=== PATIENT | female | born 1995 | race Caucasian/White ===

== ENCOUNTER 2020-09-30 15:38 | Emergency (ER) | payer SELFPAY ==
[2020-09-30] MEDS ORDERED: LORazepam 1 MG Tab PO ONE (16:26)
--- NOTE | 2020-09-30 16:42 | EDM.PDOCBH ---
ED HPI GENERAL MEDICAL PROBLEM - General Chief Complaint: Behavioral/Psych Stated Complaint: MEDICATION REQUEST Time Seen by Provider: 09/30/20 16:01 Source of Information: Reports: Patient, RN Notes Reviewed History Limitations: Reports: No Limitations - History of Present Illness INITIAL COMMENTS - FREE TEXT/NARRATIVE: Patient is a 24-year-old female presenting to the emergency department after being brought here by a sales solutions representative [facility]. They report that she was quite anxious at their facility and that they feel she needs something for anxiety to get her through the weekend. After visiting with the patient, she admits that she is feeling very anxious. She talks about her sister who shot herself in the head a number of years ago and that she is w earing a necklace with her ashes around her neck. She also talks about "the spirit moving through her "[place]. She is currently living in an apartment with a friend. States that she is traveling from [place]. She has been on medications in the past, however she cannot remember the name. She states it was a antidepressant medication that also works for schizophrenia, however she has never been diagnosed with schizophrenia. States that she has been diagnosed with anxiety and depression. She is not currently taking any medications. She denies feeling suicidal or homicidal. Right Neck Pain Score (Numeric/FACES): 7 Right Head Pain Score (Numeric/FACES): 10 Right Knee Pain Score (Numeric/FACES): 10 - Related Data Allergies Allergy/AdvReac Type Severity Reaction Status Date / Time No Known Allergies Allergy Verified 09/30/20 15:53 Home Meds: Home Meds . [No Known Home Meds] 09/30/20 [History] Past Medical History Psychiatric History: Reports: Anxiety, Depression, Suicide Attempt Other Psychiatric History: tried to kill self about 2 yrs ago Social & Family History - Tobacco Use Tobacco Use Status *Q: Never Tobacco User - Caffeine Use Other Caffeine Use: doesn't answer questions - Recreational Drug Use Recreational Drug Type: Reports: Heroin ED ROS GENERAL - Review of Systems Review Of Systems: See Below Constitutional: Reports: No Symptoms HEENT: Reports: No Symptoms Respiratory: Reports: No Symptoms Cardiovascular: Reports: No Symptoms Endocrine: Reports: No Symptoms GI/Abdominal: Reports: No Symptoms : Reports: No Symptoms Musculoskeletal: Reports: No Symptoms Skin: Reports: No Symptoms Neurological: Reports: No Symptoms Psychiatric: Reports: Anxiety, Depression. Denies: Hallucinations, Homicidal Ideation, Suicidal Ideation Hematologic/Lymphatic: Reports: No Symptoms Immunologic: Reports: No Symptoms ED EXAM, BEHAVIORAL HEALTH - Physical Exam Exam: See Below General Appearance: Alert, No Apparent Distress, Anxious Eye Exam: Bilateral Eye: PERRL Respiratory/Chest: No Respiratory Distress, Lungs Clear, Normal Breath Sounds, No Accessory Muscle Use, Chest Non-Tender Cardiovascular: Normal Peripheral Pulses, Regular Rate, Rhythm, No Edema, No Gallop, No JVD, No Murmur, No Rub GI/Abdominal: Normal Bowel Sounds, Soft, Non-Tender, No Organomegaly, No Distention, No Abnormal Bruit, No Mass Neurological: Alert, Normal Mood/Affect, CN II-XII Intact, Normal Cognition, Normal Gait, Normal Reflexes, No Motor/Sensory Deficits, Oriented x 3 Psychiatric: Alert, Oriented, Flight of Ideas, Tangential Thoughts. No: Joe icidal Thoughts, Suicidal Plan, Suicidal Thoughts, Auditory Hallucinations, Visual Hallucinations, Pressured Speech, Paranoid Thoughts, Threatening Behavior Skin Exam: Warm, Dry, Intact, Normal color, No rash COURSE, BEHAVIORAL HEALTH COMP - Course Vital Signs: Last Vital Signs Temp 97.4 F 09/30/20 15:59 Pulse 73 09/30/20 15:59 Resp 20 09/30/20 15:59 BP 102/67 09/30/20 15:59 Pulse Ox 98 09/30/20 15:59 Orders, Labs, Meds: Medications Discontinued Medications Generic Name Dose Route Start Last Admin Trade Name Freq PRN Reason Stop Dose Admin Lorazepam 1 mg 09/30/20 16:26 Lorazepam 1 Mg Tab PO 09/30/20 16:27 ONETIME ONE Discharge vs Psych Eval/Treatment:: Patient is a 24-year-old female presenting to the emergency department after being brought here by [facility]. They feel that she needs something for anxiety to get her through the weekend. She does not want to go to the residential crisis center. She has an apartment in here in town with a friend. After visiting with the patient, she does appear to have flight of ideas and tangential thinking. She talks about her sister who shot herself in the head when she was in eighth grade as well as having her ashes around her neck. She makes reference to having an extra bone in her right shoulder. Denies any suicidal or homicidal thoughts. She is not currently on any medications per her report. I have ordered Ativan 1 mg p.o. to be given now. I will visit with her further once she is feeling more calm 09/30/20 16:40 Nursing staff reports that patient left the facility. She called her boyfriend to come pick her up. Departure - Departure Time of Disposition: 16:42 Disposition: Eloped 07 Condition: Good Clinical Impression: Anxiety - Discharge Information Referrals: PCP,None [Primary Care Provider] - Forms: ED Department Discharge Sepsis Event Note (ED) - Evaluation Sepsis Screening Result: No Definite Risk - Focused Exam Vital Signs: Vital Signs Temp Pulse Resp BP Pulse Ox 09/30/20 15:59 97.4 F 73 20 102/67 98
== END 2020-09-30 16:35 | disposition left against medical advice (07) ==
LOC: JD.ED 15:38
DX: F41.9 Anxiety disorder, unspecified (principal)
CPT/HCPCS: 99283